=== PATIENT | male | born 1970 | race Caucasian/White ===

== ENCOUNTER 2018-10-01 07:53 | Day surgery (SDC) | payer OTHER ==
[2018-10-01] MEDS: SOD CHLORIDE 0.9% 1,000 ML IV (06:00)
[2018-10-01] MEDS: CEFAZOLIN 2 GM/50 ML (PMX) 50 ML IVPB (06:00)
[2018-10-01 08:46] LABS: ADD MAN DIFF? NO
[2018-10-01 08:52] LABS: WHITE BLOOD COUNT 6.6 10^3/ul (4.8-10.8)
[2018-10-01 08:52] LABS: BASOPHILS % 0.3 % (0.0-2.0); EOSINOPHILS # 0.5 10^3/ul (0.0-0.5); EOSINOPHILS % 6.8 % (0.0-7.0); HEMATOCRIT 47.4 % (42.0-52.0); HEMOGLOBIN 16.2 g/dl (14.0-18.0); LYMPHOCYTES # 1.4 10^3/ul (0.8-2.9); LYMPHOCYTES % 20.7 % (15.0-51.0); MEAN CORPUSCULAR HEMOGLOBIN 30.2 pg (29.0-33.0); MEAN CORPUSCULAR HGB CONC 34.2 g/dl (32.0-37.0); MEAN CORPUSCULAR VOLUME 88.4 fl (82.0-101.0); MEAN PLATELET VOLUME 9.4 fl (7.4-10.4); MONOCYTE # 0.4 10^3/ul (0.3-0.9); MONOCYTES % 6.5 % (0.0-11.0); NEUTROPHIL # 4.3 10^3/ul (1.6-7.5); NEUTROPHILS % 65.4 % (39.0-77.0); PLATELET COUNT 211 10^3/UL (140-415); RED BLOOD COUNT 5.36 10^6/ul (4.70-6.10); RED CELL DISTRIBUTION WIDTH 12.1 % (11.5-14.5)
[2018-10-01 09:11] LABS: INR 0.92; PROTIME 12.5 Sec (11.9-14.9)
[2018-10-01 09:12] LABS: ALANINE AMINOTRANSFERASE 24 IU/L (13-69); ALBUMIN 4.4 g/dl (3.3-4.9); ALBUMIN/GLOBULIN RATIO 1.29; ALKALINE PHOSPHATASE 55 IU/L (42-121); ANION GAP 7 (5-13); ASPARTATE AMINO TRANSFERASE 22 IU/L (15-46); BILIRUBIN,INDIRECT 0.8 mg/dl (0-1.1); BILIRUBIN,TOTAL 0.8 mg/dl (0.2-1.3); BLOOD UREA NITROGEN 15 mg/dl (7-20); CALCIUM 9.3 mg/dl (8.4-10.2); CARBON DIOXIDE 28 mmol/L (21-31); CHLORIDE 108 mmol/L (97-110); CREATININE 0.94 mg/dl (0.61-1.24); Estimated GFR > 60 mL/min (>60); GLUCOSE 112 mg/dl (70-220); PARTIAL THROMBOPLASTIN TIME 26.7 Sec (23.0-35.0); POTASSIUM 4.2 mmol/L (3.5-5.1); SODIUM 143 mmol/L (135-144); TOTAL PROTEIN 7.8 g/dl (6.1-8.1)
[2018-10-01] MEDS ORDERED: GLYCOPYRROLATE 0.4 MG INJ ×2 (10:43→10:53)
[2018-10-01] MEDS ORDERED: CEFAZOLIN 1 GM INJ (10:43)
[2018-10-01] MEDS ORDERED: ROCURONIUM 50 MG INJ (10:43)
[2018-10-01] MEDS ORDERED: NEOSTIGMINE 3 MG/3 ML SYRINGE ×2 (10:43→10:53)
[2018-10-01] MEDS ORDERED: PROPOFOL 20 ML (10:43)
[2018-10-01] MEDS ORDERED: ROPIVACAINE 0.5 % 30 ML VIAL (10:44)
[2018-10-01] MEDS ORDERED: FENTAnyl 50 MCG/ML VIAL (10:44)
[2018-10-01] MEDS ORDERED: MIDAZOLAM 1 MG/ML 2 ML INJ (10:44)
[2018-10-01] MEDS ORDERED: ONDANSETRON 4 MG INJ (10:44)
[2018-10-01] MEDS ORDERED: DEXAMETHASONE 4 MG/ML 5 ML INJ (10:44)
[2018-10-01] MEDS ORDERED: OXYCODONE/ACETAMINOPHEN (5/325) TAB PO ×2 (11:30)
[2018-10-01] MEDS ORDERED: MEPERIDINE 25 MG INJ IV (11:30)
[2018-10-01] MEDS ORDERED: IPRATROPIUM (NEB) 0.5 MG/2.5 ML AMP HHN (11:30)
[2018-10-01] MEDS ORDERED: DIPHENHYDRAMINE 50 MG INJ IV (11:30)
[2018-10-01] MEDS ORDERED: MIDAZOLAM 1 MG/ML 2 ML INJ IV (11:30)
[2018-10-01] MEDS ORDERED: ALBUTEROL 0.083% (NEB) 2.5 MG/3 ML AMP HHN (11:30)
[2018-10-01] MEDS ORDERED: TRIMETHOBENZAMIDE 100 MG/ML VIAL IM (11:30)
[2018-10-01] MEDS ORDERED: hydrALAzine 20 MG INJ IV (11:30)
[2018-10-01] MEDS ORDERED: HYDROmorphONE 1 MG/5 ML IV SYRINGE IV (11:30)
[2018-10-01] MEDS ORDERED: FENTAnyl 50 MCG/ML VIAL IV ×3 (11:30)
[2018-10-01] MEDS ORDERED: EPHEDrine SULFATE 50 MG/5 ML SYG IV (11:30)
[2018-10-01] MEDS ORDERED: LABETALOL HCL 20MG INJ IV (11:30)
[2018-10-01] MEDS: POLYMYXIN/BACITRACIN 1L IRRIG (12:01)
[2018-10-01] MEDS ORDERED: KETOROLAC 30 MG INJ (12:18)
[2018-10-01] MEDS ORDERED: HYDROCODONE/APAP (5/325) TAB PO (12:30)
[2018-10-01] MEDS: HYDROmorphONE 1 MG/5 ML IV SYRINGE IV ×2 (12:30→12:53)
[2018-10-01] MEDS: ONDANSETRON 4 MG INJ IV (12:30)
== END 2018-10-01 14:29 | disposition home or self-care (01) ==
LOC: SDS 07:53
DX: K43.6 Other and unspecified ventral hernia with obstruction, without gangrene (principal); E78.5 Hyperlipidemia, unspecified
CPT/HCPCS: 49653; 80053; 85025; 85610; 85730